=== PATIENT | male | born 1965 | race Caucasian/White ===

== ENCOUNTER 2017-08-21 14:56 | Emergency (ER) | payer BC ==
[2017-08-21] MEDS: IBUPROFEN 600 MG TAB PO (15:55)
[2017-08-21 17:15] LABS: URINE BLOOD (Dip) POC Trace-intact (NEGATIVE); URINE KETONES (Dip) POC Negative (NEGATIVE); URINE LEUKOCYTE EST (Dip) POC Negative (NEGATIVE); URINE NITRITE (Dip) POC Negative (NEGATIVE); URINE TOTAL PROTEIN POC Negative (NEGATIVE)
== END 2017-08-21 17:49 | disposition home or self-care (01) ==
LOC: FTE 14:56
DX: M25.512 Pain in left shoulder (principal); R51 Headache; R07.89 Other chest pain; M79.652 Pain in left thigh; R42 Dizziness and giddiness
CPT/HCPCS: 70450; 71045; 73030; 73550; 81003; 93005; 99285-25